=== PATIENT | male | born 1960 | race Caucasian/White ===

== ENCOUNTER 2019-03-29 21:28 | Inpatient (IN) | payer OTHER, MEDICAID ==
[2019-03-29] MEDS ORDERED: DEXTROSE 50% 50 ML SYRINGE IV ×2 (23:45)
[2019-03-29] MEDS ORDERED: GLUCOSE GEL 15 GRAM TUBE BUCCAL (23:45)
[2019-03-29] MEDS ORDERED: GLUCAGON 1 MG INJ IM (23:45)
[2019-03-29] MEDS ORDERED: GLUCOSE GEL 15 GRAM TUBE PO ×2 (23:45)
[2019-03-29] MEDS: SOD CHLORIDE 0.9% 1,000 ML IV (23:59)
[2019-03-30] MEDS ORDERED: BISACODYL (EC) 5 MG TAB PO
[2019-03-30] MEDS ORDERED: NACL 0.9% 3 ML SYG IV
[2019-03-30] MEDS ORDERED: morphine 2 MG INJ IV
[2019-03-30] MEDS ORDERED: ONDANSETRON 4 MG INJ IV
[2019-03-30] MEDS ORDERED: ACETAMINOPHEN 325 MG TAB PO
[2019-03-30 00:03] LABS: ADD MAN DIFF? NO
[2019-03-30 00:06] LABS: WHITE BLOOD COUNT 5.7 10^3/ul (4.8-10.8)
[2019-03-30 00:06] LABS: BASOPHILS % 0.5 % (0.0-2.0); EOSINOPHILS # 0.2 10^3/ul (0.0-0.5); EOSINOPHILS % 2.8 % (0.0-7.0); HEMATOCRIT 42.4 % (42.0-52.0); HEMOGLOBIN 14.2 g/dl (14.0-18.0); LYMPHOCYTES # 1.8 10^3/ul (0.8-2.9); LYMPHOCYTES % 32.2 % (15.0-51.0); MEAN CORPUSCULAR HEMOGLOBIN 30.5 pg (29.0-33.0); MEAN CORPUSCULAR HGB CONC 33.5 g/dl (32.0-37.0); MEAN PLATELET VOLUME 10.7 fl (7.4-10.4); MONOCYTE # 0.7 10^3/ul (0.3-0.9); MONOCYTES % 12.7 % (0.0-11.0); NEUTROPHIL # 2.9 10^3/ul (1.6-7.5); NEUTROPHILS % 51.6 % (39.0-77.0); PLATELET COUNT 237 10^3/UL (140-415); RED BLOOD COUNT 4.66 10^6/ul (4.70-6.10); RED CELL DISTRIBUTION WIDTH 12.3 % (11.5-14.5)
[2019-03-30] MEDS: DOCUSATE SODIUM 100 MG CAP PO ×2 (00:07→12:00)
[2019-03-30] MEDS: HEPARIN 5,000 UNIT/1 ML VIAL SC ×4 (00:08→21:57)
[2019-03-30 00:30] LABS: INR 0.97
[2019-03-30 00:31] LABS: PARTIAL THROMBOPLASTIN TIME 28.2 Sec (23.0-35.0)
[2019-03-30 00:38] LABS: ALANINE AMINOTRANSFERASE 37 IU/L (13-69); ALBUMIN 3.4 g/dl (3.3-4.9); ALBUMIN/GLOBULIN RATIO 1.25; ALKALINE PHOSPHATASE 70 IU/L (42-121); ANION GAP 6 (5-13); ASPARTATE AMINO TRANSFERASE 27 IU/L (15-46); BILIRUBIN,INDIRECT 0.6 mg/dl (0-1.1); BILIRUBIN,TOTAL 0.6 mg/dl (0.2-1.3); BLOOD UREA NITROGEN 29 mg/dl (7-20); CALCIUM 8.9 mg/dl (8.4-10.2); CARBON DIOXIDE 26 mmol/L (21-31); CHLORIDE 107 mmol/L (97-110); CREATININE 0.86 mg/dl (0.61-1.24); Estimated GFR > 60 mL/min (>60); GLUCOSE 204 mg/dl (70-220); MAGNESIUM 2.1 mg/dl (1.7-2.5); POTASSIUM 4.3 mmol/L (3.5-5.1); SODIUM 139 mmol/L (135-144); TOTAL PROTEIN 6.1 g/dl (6.1-8.1)
[2019-03-30] MEDS: INSULIN ASPART [NOVOLOG] 3 ML PEN SC ×7 (01:15→21:55)
[2019-03-30 01:54] LABS: HEMOGLOBIN A1C 8.9 % (0-5.9)
[2019-03-30] MEDS: ACCU-CHEK XX (02:00)
[2019-03-30 06:03] LABS: ADD MAN DIFF? NO
[2019-03-30 06:07] LABS: BASOPHILS % 0.7 % (0.0-2.0); EOSINOPHILS # 0.2 10^3/ul (0.0-0.5); EOSINOPHILS % 2.5 % (0.0-7.0); HEMATOCRIT 42.1 % (42.0-52.0); LYMPHOCYTES % 33.2 % (15.0-51.0); MEAN CORPUSCULAR HEMOGLOBIN 30.4 pg (29.0-33.0); MEAN CORPUSCULAR HGB CONC 33.3 g/dl (32.0-37.0); MEAN CORPUSCULAR VOLUME 91.5 fl (82.0-101.0); MONOCYTE # 0.8 10^3/ul (0.3-0.9); MONOCYTES % 12.7 % (0.0-11.0); NEUTROPHIL # 3.1 10^3/ul (1.6-7.5); NEUTROPHILS % 50.6 % (39.0-77.0); PLATELET COUNT 243 10^3/UL (140-415); RED CELL DISTRIBUTION WIDTH 12.2 % (11.5-14.5)
[2019-03-30 06:07] LABS: WHITE BLOOD COUNT 6.1 10^3/ul (4.8-10.8)
[2019-03-30 06:36] LABS: ALANINE AMINOTRANSFERASE 37 IU/L (13-69); ALBUMIN 3.2 g/dl (3.3-4.9); ALBUMIN/GLOBULIN RATIO 1.18; ALKALINE PHOSPHATASE 64 IU/L (42-121); ANION GAP 6 (5-13); ASPARTATE AMINO TRANSFERASE 33 IU/L (15-46); BILIRUBIN,INDIRECT 0.6 mg/dl (0-1.1); BILIRUBIN,TOTAL 0.6 mg/dl (0.2-1.3); BLOOD UREA NITROGEN 28 mg/dl (7-20); CALCIUM 8.6 mg/dl (8.4-10.2); CARBON DIOXIDE 26 mmol/L (21-31); CHLORIDE 107 mmol/L (97-110); CHOL/HDL RATIO 3.3 RATIO; CHOLESTEROL 142 mg/dl (100-200); CREATININE 0.69 mg/dl (0.61-1.24); Estimated GFR > 60 mL/min (>60); GLUCOSE 164 mg/dl (70-220); HDL CHOLESTEROL 43 mg/dl (28-71); LDL CHOLESTEROL,CALCULATED 77 mg/dl; MAGNESIUM 2.1 mg/dl (1.7-2.5); POTASSIUM 4.4 mmol/L (3.5-5.1); SODIUM 139 mmol/L (135-144); TOTAL PROTEIN 5.9 g/dl (6.1-8.1); TRIGLYCERIDES 108 mg/dl (0-149)
[2019-03-30] MEDS: BENAZEPRIL 40 MG TAB PO (08:17)
[2019-03-30] MEDS ORDERED: ASPIRIN 325 MG TAB PO (09:00)
[2019-03-30] MEDS: ASPIRIN 81 MG TAB PO (09:31)
[2019-03-30] MEDS: SOD CHLORIDE 0.9% 1,000 ML IV (12:07)
[2019-03-30] MEDS: ATORVASTATIN 10 MG TAB PO (21:54)
[2019-03-30] MEDS: INSULIN GLARGINE [LANTus] (100 UNITS/ML) SYG SC (21:56)
[2019-03-31] MEDS: DOCUSATE SODIUM 100 MG CAP PO ×2 (01:42→12:00)
[2019-03-31] MEDS: SOD CHLORIDE 0.9% 1,000 ML IV (01:42)
[2019-03-31] MEDS: ACCU-CHEK XX (02:00)
[2019-03-31] MEDS: HEPARIN 5,000 UNIT/1 ML VIAL SC (05:53)
[2019-03-31] MEDS: INSULIN ASPART [NOVOLOG] 3 ML PEN SC ×4 (09:42→12:05)
[2019-03-31] MEDS: ASPIRIN 81 MG TAB PO (09:43)
[2019-03-31] MEDS: BENAZEPRIL 40 MG TAB PO (09:43)
== END 2019-03-31 15:20 | disposition home or self-care (01) | DRG 641 ==
LOC: PP2 21:28
PROVIDERS: Pediatrics Pediatric Critical Care Medicine
DX: E86.0 Dehydration (principal); K52.9 Noninfective gastroenteritis and colitis, unspecified; E11.9 Type 2 diabetes mellitus without complications; I10 Essential (primary) hypertension; E78.5 Hyperlipidemia, unspecified; F17.200 Nicotine dependence, unspecified, uncomplicated; E66.9 Obesity, unspecified; Z68.33 Body mass index [BMI] 33.0-33.9, adult; Z79.4 Long term (current) use of insulin; Z79.82 Long term (current) use of aspirin
CPT/HCPCS: 80053; 80061; 82962; 83036; 83735; 84443; 85025; 85610; 85730